=== PATIENT | male | born 1950 | race Caucasian/White ===

== ENCOUNTER 2016-08-27 09:30 | Emergency (ER) | payer OTHER ==
[~2016-08-27] VITALS: Ht 157.5 cm; Wt 65.9 kg
[2016-08-27 10:27] LABS: BASOPHILS % (AUTO) 1.2 % (0.0-2.0); EOSINOPHILS % (AUTO) 0.8 % (1.0-6.0); HEMATOCRIT 33.3 % (41-53); HEMOGLOBIN 11.4 g/dL (13.5-17.5); LYMPHOCYTES # (AUTO) 1.1 K/uL (1.0-4.8); LYMPHOCYTES % (AUTO) 16.1 % (22.0-44.0); MEAN CORPUSCULAR HEMOGLOBIN 33.6 pg (26.0-34.0); MEAN CORPUSCULAR HGB CONC 34.1 G/dL (31.0-37.0); MEAN CORPUSCULAR VOLUME 99 fL (80-100); MONOCYTES # (AUTO) 0.7 K/uL (0.1-1.0); MONOCYTES % (AUTO) 10.1 % (2.0-9.0); NEUTROPHILS # (AUTO) 4.8 K/uL (1.8-7.7); NEUTROPHILS % (AUTO) 71.8 % (40.0-70.0); PLATELET COUNT (AUTO) 301 K/uL (150-450); RED BLOOD CELL COUNT(AUTO) 3.37 MIL/uL (4.50-5.90); RED CELL DISTRIBUTION WIDTH 13.5 % (11.5-14.5); WHITE BLOOD COUNT (AUTO) 6.8 K/uL (4.5-11.0)
[2016-08-27 10:35] LABS: ANION GAP 16 mmol/L (8-16); CALCIUM, TOTAL 8.9 mg/dL (8.8-10.5); CARBON DIOXIDE 18 mmol/L (22-29); CHLORIDE 104 mmol/L (98-107); CREATININE 1.75 mg/dL (0.60-1.30); GLOMERULAR FILTR. RATE CALC 39 mL/min (>60); POTASSIUM 4.2 mmol/L (3.5-5.1); SODIUM SERUM 138 mmol/L (136-145); UREA NITROGEN, BLOOD 31 mg/dL (7-18)
[2016-08-27 10:40] LABS: ALANINE AMINOTRANSFERASE 37 U/L (12-78); ALBUMIN 4.2 g/dL (3.4-5.0); ASPARTATE AMINOTRANSFERASE 49 U/L (15-37); BILIRUBIN,TOTAL 0.9 mg/dL (0.1-1.0); TOTAL PROTEIN, SERUM 8.2 g/dL (6.4-8.2)
[2016-08-27] MEDS ORDERED: HALOPERIDOL LACTATE 5 MG/ML VIAL ONE (12:35)
[2016-08-27] MEDS ORDERED: DiphenhydrAMINE HCL 50 MG/ML VIAL ONE (12:35)
[2016-08-27] MEDS ORDERED: LORazepam 2 MG/ML VIAL ONE (12:35)
[2016-08-27] MEDS: DiphenhydrAMINE HCL 50 MG/ML VIAL IM ONE (12:47)
[2016-08-27] MEDS: LORazepam 2 MG/ML VIAL IM ONE (12:47)
[2016-08-27] MEDS: HALOPERIDOL LACTATE 5 MG/ML VIAL IM ONE (12:47)
[2016-08-27 15:02] LABS: GLUCOSE,POINT OF CARE 182 MG/DL (70-110)
[2016-08-27] MEDS ORDERED: HUM10VIA SQ (15:19)
[2016-08-27] MEDS ORDERED: LISI-660 PO (15:19)
[2016-08-27] MEDS ORDERED: GABA-531 PO (15:22)
[2016-08-27] MEDS ORDERED: INSREG SQ (15:22)
[2016-08-27] MEDS ORDERED: CARV3 PO (15:22)
[2016-08-27] MEDS ORDERED: TADA2.5T PO (15:22)
[2016-08-27 17:55] VITALS: BP 139/71
== END 2016-08-27 18:18 | disposition short-term general hospital (02) ==
LOC: EDBD 09:33 → EMS 09:33 → EEVIPCON 09:33 → EMS 18:18
DX: F32.9 Major depressive disorder, single episode, unspecified (principal); R45.851 Suicidal ideations; S41.111A Laceration without foreign body of right upper arm, initial encounter; S41.112A Laceration without foreign body of left upper arm, initial encounter; E11.65 Type 2 diabetes mellitus with hyperglycemia; X83.8XXA Intentional self-harm by other specified means, initial encounter; Y93.89 Activity, other specified; Y92.89 Other specified places as the place of occurrence of the external cause; Y99.8 Other external cause status
CPT/HCPCS: 36415; 80053; 80307; 82962; 85025; 93005; 96372; 99291; G0480; J1200; J1630; J2060